=== PATIENT | male | born 1985 | race Caucasian/White ===

== ENCOUNTER 2024-09-04 16:17 | Emergency (ER) | payer OTHER ==
[2024-09-04 16:30] VITALS: TEMP 99
[2024-09-04] MEDS: KETOROLAC 15 MG/ML 1 ML VIAL IM STA (17:11)
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
[2024-09-04 19:55] VITALS: BP 147/97; PULSE 86; RESP 18
== END 2024-09-04 19:54 | disposition home or self-care (01) ==
LOC: EC 16:17
DX: S16.1XXA Strain of muscle, fascia and tendon at neck level, initial encounter (principal); S39.012A Strain of muscle, fascia and tendon of lower back, initial encounter; F17.290 Nicotine dependence, other tobacco product, uncomplicated; Z88.0 Allergy status to penicillin; V89.2XXA Person injured in unspecified motor-vehicle accident, traffic, initial encounter; Y92.410 Unspecified street and highway as the place of occurrence of the external cause
CPT/HCPCS: 72110; 72125; 99284; 96372; J1885